=== PATIENT | male | born 1965 | race Caucasian/White ===

== ENCOUNTER 2018-10-11 15:16 | Emergency (ER) | payer OTHER ==
--- NOTE | 2018-10-11 17:18 | ED ---
Laceration/Wound HPI - HPI Summary HPI Summary: Patient is a 52-year-old male presenting to the ED with right thumb injury. Patient states he was helping someone move when a dresser fell down and cut the tip of his thumb. There is a laceration through the distal tip of the nail as well as the bilateral sides of the nail of the distal tip of the right thumb. Patient denies any pain at this time. Bleeding is well controlled on arrival. He denies any numbness or tingling. He offers no other complaints. He takes no anticoagulation medications. Tetanus is up-to-date as of 10 days ago. - History of Current Complaint Stated Complaint: RT THUMB LAC PER PT Time Seen by Provider: 10/11/18 15:22 Hx Obtained From: Patient Mechanism of Injury: Sharp/Blunt Trauma Onset/Duration: Sudden Onset Aggravating: Movement Alleviating: Compression Onset Severity: Mild Current Severity: Mild Pain Intensity: 0 Pain Scale Used: 0-10 Numeric Related Hx: Dominant Hand (Left), Recent Trauma - Allergy/Home Medications Allergies/Adverse Reactions: Allergies Allergy/AdvReac Type Severity Reaction Status Date / Time No Known Allergies Allergy Verified 10/11/18 15:38 Home Medications: Home Medications Insulin Lispro [Admelog] 1 dose INJ SEE INSTRUCTIONS 10/11/18 [History Confirmed 10/11/18] Lisinopril 20 mg PO DAILY 10/11/18 [History Confirmed 10/11/18] PMH/Surg Hx/FS Hx/Imm Hx Previously Healthy: Yes - Immunization History Hx Pertussis Vaccination: No Immunizations Up to Date: Yes Infectious Disease History: No Infectious Disease History: Denies: Traveled Outside the [place] in Last 30 Days - Social History Occupation: Employed Full-time Lives: With Family Alcohol Use: None Hx Substance Use: No Substance Use Type: Reports: None Hx Tobacco Use: No Smoking Status (MU): Never Smoked Tobacco Review of Systems Constitutional: Negative Negative: Fever, Fatigue, Skin Diaphoresis Negative: Palpitations, Chest Pain Negative: Shortness Of Breath, Cough Genitourinary: Negative Positive: no symptoms reported, see HPI Negative: Arthralgia, Myalgia Positive: Other - right distal tip thumb injury Neurological: Negative All Other Systems Reviewed And Are Negative: Yes Physical Exam Triage Information Reviewed: Yes Vital Signs On Initial Exam: Initial Vitals Temp Pulse Resp BP Pulse Ox 97.1 F 77 18 100/73 96 10/11/18 15:18 10/11/18 15:18 10/11/18 15:18 10/11/18 15:18 10/11/18 15:18 Vital Signs Reviewed: Yes Appearance: Positive: Well-Appearing, Well-Nourished Skin: Positive: Warm, Skin Color Reflects Adequate Perfusion, Other - Laceration to the distal tip of the right thumb involving the nail Head/Face: Positive: Normal Head/Face Inspection Eyes: Positive: EOMI, CRUZ, Conjunctiva Clear Neck: Positive: Supple, No Lymphadenopathy Respiratory/Lung Sounds: Positive: Clear to Auscultation, Breath Sounds Present Cardiovascular: Positive: RRR, Pulses are Symmetrical in both Upper and Lower Extremities Musculoskeletal: Positive: Normal, Strength/ROM Intact Neurological: Positive: Sensory/Motor Intact, Alert, Oriented to Person Place, Time Psychiatric: Positive: Affect/Mood Appropriate Diagnostics - Vital Signs Vital Signs Temp Pulse Resp BP Pulse Ox 10/11/18 15:18 97.1 F 77 18 100/73 96 - Laboratory Lab Statement: Any lab studies that have been ordered have been reviewed, and results considered in the medical decision making process. Laceration Repair Course/Dx - Course Course Of Treatment: Physical examination, there is a laceration to the distal tip of the right nail, not involving the nailbed. The nailbed and distal tip of the finger is somewhat detached. X-ray obtained which shows no acute findings. Cleanse wound thoroughly. Digital block to the right thumb with good effect. 4 sutures placed, to placed through the nail. Occlusive gauze wraps. 2 gauze wrapped and compression dressing applied. He is given pain medication. - Differential Dx Differental Diagnoses: Laceration - Clinical Impression Provider Diagnoses: Laceration Discharge ED - Sign-Out/Discharge Documenting (check all that apply): Patient Departure Patient Received Moderate/Deep Sedation with Procedure: No - Discharge Plan Condition: Stable Disposition: HOME Prescriptions: traMADol TAB* [Ultram*] 50 mg PO Q8H PRN #12 tab MDD 3 PRN Reason: Pain Patient Education Materials: Care For Your Stitches (ED), Laceration (ED) Referrals: No Primary Care Phys,NOPCP [Primary Care Provider] - Additional Instructions: Sutures removed in 7 days Keep the brown bandage applied for the next few hours Keep the white bandage applied until tomorrow evening You may change of the bandage with another gauze Keep the area wrapped for 2 days total, then you may leave open to air unless you are working or in a dirty environment - Billing Disposition and Condition Condition: STABLE Disposition: Home - Attestation Statements Provider Attestation: I was available for consult. This patient was seen by the RYAN. The patient was not presented to, seen by, or examined by me. Bebeto Desai MD
[2018-10-11 17:37] VITALS: BP 102/74
== END 2018-10-11 17:10 | disposition home or self-care (01) ==
LOC: ED 15:16
DX: S61.011A Laceration without foreign body of right thumb without damage to nail, initial encounter (principal); W22.8XXA Striking against or struck by other objects, initial encounter; Y92.9 Unspecified place or not applicable; Z79.4 Long term (current) use of insulin; Z79.899 Other long term (current) drug therapy
CPT/HCPCS: 12001; 99282